=== PATIENT | male | born 1970 | race Caucasian/White ===

== ENCOUNTER 2018-12-16 06:29 | Day surgery (SDC) | payer BC ==
[~2018-12-16] VITALS: Ht 177.8 cm; Wt 102.4 kg
[2018-12-16 07:12] VITALS: BP 132/86; PULSE 88; TEMP 97.9
[2018-12-16] MEDS ORDERED: FLOMAX 0.40.4 MG/CAP PO (07:20)
[2018-12-16] MEDS ORDERED: ADVIL200 MG PO (07:20)
[2018-12-16] MEDS ORDERED: TUMS500 MG PO (07:20)
[2018-12-16] MEDS ORDERED: NORCO 325 MG-7.1 TAB PO (07:22)
--- NOTE | 2018-12-16 07:23 | NUR ---
TO RM 7 AT 0640- CALL LIGHT IN REACH GIRLFRIEND HOANG AT BEDSIDE.
[2018-12-16 09:03] VITALS: BP 123/83; PULSE 75; TEMP 97.3
--- NOTE | 2018-12-16 09:03 | NUR ---
TO RM 7 PER CART FROM PACU. ALERT ORIENTED X3, TALKING TO STAFF AND GIRLFRIEND. DRINKING WATER FROM PACU. DENIES PAIN OR DISCOMFORT DENIES NAUSEA OR VOMITING.
[2018-12-16 09:20] VITALS: BP 120/79; PULSE 86
--- NOTE | 2018-12-16 09:20 | NUR ---
RECEIVED COFFEE/ CREAM AND SUGAR.
[2018-12-16 09:35] VITALS: BP 122/85; PULSE 71
--- NOTE | 2018-12-16 09:35 | NUR ---
RECEIVED 2ND CUP COFFEE AND MUFFIN PATIENT STATED " I FEEL GOOD'
--- NOTE | 2018-12-16 09:50 | NUR ---
DRANK 2ND CUP OF COFFEE. ATE 1/2 MUFFIN. AMBULATED TO BATHROOM WITH STANDBY ASSIST AND TOLERATED WELL.
--- NOTE | 2018-12-16 10:01 | NUR ---
RECEIVED DISCHARGE INSTRUCTIONS AND VERBALIZED UNDERSTANDING. DISCONTINUED IV AND INT- CATHETER INTACT. PATIENT GETTING DRESSED AND GIRLFRIEND GETTING THE CAR.
--- NOTE | 2018-12-16 10:15 | NUR ---
DISCHARGED PER WC BY NURSING STAFF TO PRIVATE CAR IN CARE OF GIRLFRIEND DEE
== END 2018-12-16 10:55 | disposition home or self-care (01) ==
LOC: SDCO 06:29
DX: N20.1 Calculus of ureter (principal); F17.210 Nicotine dependence, cigarettes, uncomplicated; G47.33 Obstructive sleep apnea (adult) (pediatric); K21.9 Gastro-esophageal reflux disease without esophagitis; Z96.643 Presence of artificial hip joint, bilateral; Z88.0 Allergy status to penicillin
CPT/HCPCS: C1769; J0690; J1100; J1885; J2405; J2704; J3010; J7120; Q9967